=== PATIENT | male | born 1985 | race Hispanic/Latino ===

== ENCOUNTER 2018-02-11 19:11 | Emergency (ER) | payer SELFPAY ==
--- NOTE | 2018-02-11 21:36 | ER ---
Nurse's Notes [facility] Name: David Negron Jr Age: 32 yrs Sex: Male : 1985 Arrival Date: 02/11/2018 Time: 19:12 Bed 5 Private MD: Diagnosis: Insomnia;Other recurrent depressive disorders;Other psychoactive substance abuse-amphetamine abuse;Cannabis abuse Presentation: 02/11 19:28 Presenting complaint: Patient states: that he has lost touch with reality. States he fc doesn't know what it real and what is not. States that he is not currently suicidal but is afraid that if he does not get help he will end up that way. Pt has not slept in 6 days and is not eating well. Hx of drug use. Today left home and was picked up on the side of the road and taken to [facility]. Transition of care: patient was not received from another setting of care. Onset of symptoms was February 10, 2018. Risk Assessment: Do you want to hurt yourself or someone else? Unable to obtain. Initial Sepsis Screen: Does the patient meet any 2 criteria? No. Patient's initial sepsis screen is negative. Does the patient have a suspected source of infection? No. Patient's initial sepsis screen is negative. Care prior to arrival: seen at another hospital today. 19:28 Method Of Arrival: Ambulatory 19:28 Acuity: MELODY 2 bb Historical: - Allergies: 19:33 No Known Allergies; fc - Home Meds: 19:33 None [Active]; fc - PMHx: 19:33 Hypertension; Drug use; Thyroid problems; fc - PSHx: 19:33 shoulder surg; fc - Immunization history:: Last tetanus immunization: up to date. - Social history:: Smoking status: Patient uses tobacco products, smokes one pack cigarettes per day. Patient uses alcohol, occasionally. street drugs, cocaine, LSD, marijuana, Methamphetamine (Meth) methylenedioxymethamphetamine, psilocybin. - Ebola Screening: : Patient negative for fever greater than or equal to 101.5 degrees Fahrenheit, and additional compatible Ebola Virus Disease symptoms Patient denies exposure to infectious person Patient denies travel to an Ebola-affected area in the 21 days before illness onset. Screenin:35 Abuse screen: Denies threats or abuse. Nutritional screening: No deficits noted. fc Tuberculosis screening: No symptoms or risk factors identified. Fall Risk None identified. Assessment: 20:31 General: Appears in no apparent distress. Behavior is calm, cooperative, restless. ea Pain: Denies pain. Neuro: Level of Consciousness is awake, alert, Oriented to person, place, time. Cardiovascular: Patient's skin is warm and dry. Respiratory: Airway is patent Respiratory effort is even, unlabored, Respiratory pattern is regular, symmetrical. GI: No signs and/or symptoms were reported involving the gastrointestinal system. : No signs and/or symptoms were reported regarding the genitourinary system. EENT: No signs and/or symptoms were reported regarding the EENT system. Derm: Skin is pink, warm \T\ dry. 21:55 Reassessment: Patient and/or family updated on plan of care and expected duration. Pain ea level reassessed. Patient is alert, oriented x 3, equal unlabored respirations, skin warm/dry/pink. Discharge instructions given to patient, verbalized the understanding of instruction. Pt reports he does not have a ride, stated he would try to contact his friend for a ride home. 22:27 Reassessment: Patient and/or family updated on plan of care and expected duration. Pain ea level reassessed. Patient is alert, oriented x 3, equal unlabored respirations, skin warm/dry/pink. Pt left via Taxi. Psych: 19:36 Subjective: Patient's mood is sad, irritable, hopeless, Delusions are denied, fc Hallucinations are auditory, visual, Having thoughts of suicide. Denies suicidal plan. Objective: Patient is cooperative, irritable, using poor eye contact, restless, Speech is normal, Affect is appropriate. Interventions: Removed personal items and placed in bag. Patient placed in hospital gown. Suicide Risk Assessment: Sad Person Scale: Sex of patient: Male: Score 1 point. Age of patient: Score 1 point if patient 15-34. Depression: Score 1 point if signs of depression are present. Previous Attempt: Score 0 point if patient has not previously attempted suicide. Substance Abuse: Score 1 point if patient abuses alcohol or drugs. Rational Thinking: Score 1 point if patient is lacking rational thinking. Social Support: Score 0 if social support is present/available. Organized Plan: Score 0 if patient did not have an organized plan in place. Relationship: Score 1 point if patient is , , , or for a single male Chronic Sickness: Score 0 point if patient does not have a chronic illness, debilitating, or severe disorder. TOTAL POINTS: If total points are 5-6, proposed clinical action is to strongly consider hospitalization, depending upon confidence in the follow-up arrangement. Implement suicide precautions. Safety Checks: Personal items have been removed. Door is open. Visitors are present. Patient uses Patient uses cocaine, Patient uses hallucinogens Patient uses marijuana Patient uses methamphetamines Patient uses PCP. Vital Signs: 19:33 BP 133 / 92; Pulse 90; Resp 16; Temp 98.5(O); Pulse Ox 98% on R/A; Weight 113.4 kg (R); fc Height 5 ft. 11 in. (180.34 cm) (R); Pain 0/10; 20:45 BP 132 / 80; Pulse 87; Resp 18; Pulse Ox 99% ; ea 21:45 BP 128 / 82; Pulse 68; Resp 18; Pulse Ox 99% ; ea 22:00 BP 130 / 76; Pulse 78; Resp 18; Temp 98(O); Pulse Ox 99% ; ea 19:33 Body Mass Index 34.87 (113.40 kg, 180.34 cm) ED Course: 19:12 Patient arrived in ED. am2 19:31 Triage completed. fc 19:33 Arm band placed on Patient placed in an exam room, on a stretcher. fc 19:35 Yousif Oliver NP is PHCP. pm1 19:35 Niraj Damon MD is Attending Physician. pm1 19:35 Patient has correct armband on for positive identification. Placed in gown. Bed in low fc position. Call light in reach. 20:30 Berta Rojas, BRIAN is Primary Nurse. ea 22:07 No provider procedures requiring assistance completed. Patient did not have IV access ea during this emergency room visit. Administered Medications: 21:38 Drug: Ativan 1 mg Route: PO; ea 22:07 Follow up: Response: No adverse reaction; Marked relief of symptoms ea Outcome: 21:36 Discharge ordered by . pm1 22:08 Condition: improved ea 22:08 Instructed on discharge instructions, follow up and referral plans. Demonstrated understanding of instructions, follow-up care. 22:27 Discharged to home ambulatory. ea 22:30 Patient left the ED. ea Signatures: Ronel El RN BRIAN fc Nancy Meraz RN RN bb Yousif Oliver, [employer] pm1 Torri Shields am2 Berta Rojas RN RN ea Corrections: (The following items were deleted from the chart) 19:34 19:28 Presenting complaint: Patient states: that he has lost touch with reality. States fc he doesn't know what it real and what is not. States that he is not currently suicidal but is afraid that if he does not get help he will end up that way. 19:51 19:28 Acuity: MELODY 3 fc bb 20:32 20:31 Neuro: Level of Consciousness is awake, alert, Oriented to person, place, ea ea
--- NOTE | 2018-02-11 21:37 | EDPHYS ---
Physician Documentation [facility] Name: David Negron Jr Age: 32 yrs Sex: Male : 1985 Arrival Date: 02/11/2018 Time: 19:12 Bed 5 Private MD: ED Physician Niraj Damon HPI: 02/11 20:00 This 32 yrs old Male presents to ER via Ambulatory with complaints of Altered pm1 Mental Status. 20:00 The patient presents to the emergency department with anxiety, depression, psychosis, pm1 paranoia, insomnia. Associated signs and symptoms: Pertinent positives; anxiety, depression, paranoia, substance abuse, Pertinent negatives: homicidal ideation, suicide ideation. The patient has experienced similar episodes in the past, chronically. Patient was just discharged from [facility] with depression and substance abuse. Lab work was performed and the patient tested positive for cannabis and amphetmamines. Patient complaining of inability to sleep for the past 6 days. Historical: - Allergies: 19:33 No Known Allergies; fc - Home Meds: 19:33 None [Active]; fc - PMHx: 19:33 Hypertension; Drug use; Thyroid problems; fc - PSHx: 19:33 shoulder surg; fc - Immunization history:: Last tetanus immunization: up to date. - Social history:: Smoking status: Patient uses tobacco products, smokes one pack cigarettes per day. Patient uses alcohol, occasionally. street drugs, cocaine, LSD, marijuana, Methamphetamine (Meth) methylenedioxymethamphetamine, psilocybin. - Ebola Screening: : Patient negative for fever greater than or equal to 101.5 degrees Fahrenheit, and additional compatible Ebola Virus Disease symptoms Patient denies exposure to infectious person Patient denies travel to an Ebola-affected area in the 21 days before illness onset. ROS: 20:00 Constitutional: Negative for fever, chills, and weight loss, Eyes: Negative for injury, pm1 pain, redness, and discharge, ENT: Negative for injury, pain, and discharge, Neck: Negative for injury, pain, and swelling, Cardiovascular: Negative for chest pain, palpitations, and edema, Respiratory: Negative for shortness of breath, cough, wheezing, and pleuritic chest pain, Abdomen/GI: Negative for abdominal pain, nausea, vomiting, diarrhea, and constipation, Back: Negative for injury and pain, MS/Extremity: Negative for injury and deformity, Skin: Negative for injury, rash, and discoloration, Neuro: Negative for headache, weakness, numbness, tingling, and seizure. 20:00 Psych: Positive for anxiety, depression, insomnia, Negative for homicidal ideation, suicide gesture, suicidal ideation. Exam: 20:00 Constitutional: This is a well developed, well nourished patient who is awake, alert, pm1 and in no acute distress. Head/Face: Normocephalic, atraumatic. Eyes: Pupils equal round and reactive to light, extra-ocular motions intact. Lids and lashes normal. Conjunctiva and sclera are non-icteric and not injected. Cornea within normal limits. Periorbital areas with no swelling, redness, or edema. ENT: Nares patent. No nasal discharge, no septal abnormalities noted. Tympanic membranes are normal and external auditory canals are clear. Oropharynx with no redness, swelling, or masses, exudates, or evidence of obstruction, uvula midline. Mucous membranes moist. Neck: Trachea midline, no thyromegaly or masses palpated, and no cervical lymphadenopathy. Supple, full range of motion without nuchal rigidity, or vertebral point tenderness. No Meningismus. Chest/axilla: Normal chest wall appearance and motion. Nontender with no deformity. No lesions are appreciated. Cardiovascular: Regular rate and rhythm with a normal S1 and S2. No gallops, murmurs, or rubs. Normal PMI, no JVD. No pulse deficits. Respiratory: Lungs have equal breath sounds bilaterally, clear to auscultation and percussion. No rales, rhonchi or wheezes noted. No increased work of breathing, no retractions or nasal flaring. Abdomen/GI: Soft, non-tender, with normal bowel sounds. No distension or tympany. No guarding or rebound. No evidence of tenderness throughout. Back: No spinal tenderness. No costovertebral tenderness. Full range of motion. Skin: Warm, dry with normal turgor. Normal color with no rashes, no lesions, and no evidence of cellulitis. MS/ Extremity: Pulses equal, no cyanosis. Neurovascular intact. Full, normal range of motion. 20:00 Neuro: Orientation: is normal, Motor: is normal, moves all fours, strength is normal, strength is 5/5 in all extremities, Gait: is steady, at a normal pace, without difficulty. 20:00 Psych: Behavior/mood is pleasant, cooperative, Affect is calm, Oriented to person, place, time, Patient has no thoughts/intents to harm self or others. Delusions/hallucinations are not present. Vital Signs: 19:33 BP 133 / 92; Pulse 90; Resp 16; Temp 98.5(O); Pulse Ox 98% on R/A; Weight 113.4 kg (R); fc Height 5 ft. 11 in. (180.34 cm) (R); Pain 0/10; 20:45 BP 132 / 80; Pulse 87; Resp 18; Pulse Ox 99% ; ea 21:45 BP 128 / 82; Pulse 68; Resp 18; Pulse Ox 99% ; ea 22:00 BP 130 / 76; Pulse 78; Resp 18; Temp 98(O); Pulse Ox 99% ; ea 19:33 Body Mass Index 34.87 (113.40 kg, 180.34 cm) fc MDM: 19:47 Patient medically screened. pm1 21:25 ED course: Patient sleeping in room without any complaints on reevaluation . pm1 21:31 Data reviewed: vital signs. Data interpreted: Pulse oximetry: on room air is 98 %. pm1 Interpretation: normal. Counseling: I had a detailed discussion with the patient and/or guardian regarding: the historical points, exam findings, and any diagnostic results supporting the discharge/admit diagnosis, lab results, the need for outpatient follow up, a family practitioner, a psychiatrist, to return to the emergency department if symptoms worsen or persist or if there are any questions or concerns that arise at home. Administered Medications: 21:38 Drug: Ativan 1 mg Route: PO; ea 22:07 Follow up: Response: No adverse reaction; Marked relief of symptoms ea Disposition: 02/12 02:19 Co-signature as Attending Physician, Niraj Damon MD I agree with the assessment and 4 plan of care. Attestation: The patient's history, exam findings, diagnostics, and a summary of any interventions or procedures was reviewed in detail with Yousif Oliver NP. Disposition: 02/11/18 21:36 Discharged to Home. Impression: Other recurrent depressive disorders, Insomnia, Other psychoactive substance abuse - amphetamine abuse, Cannabis abuse. - Condition is Stable. - Discharge Instructions: Finding Treatment for Addiction, Insomnia, Major Depressive Disorder. - Medication Reconciliation Form, Thank You Letter form. - Follow up: Emergency Department; When: As needed; Reason: Worsening of condition. Follow up: Private Physician; When: 2 - 3 days; Reason: Recheck today's complaints, Continuance of care, Re-evaluation by your physician. - Problem is new. - Symptoms have improved. Signatures: Dispatcher [employer] EDMS Ronel El RN RN fc Marinas, Patrick, NP DIRECTOR CARDIOVASCULAR pm1 Berta Rojas RN Niraj Reyna ea, MD MD tw4 Corrections: (The following items were deleted from the chart) 02/11 21:36 21:36 02/11/2018 21:36 Discharged to Home. Impression: Insomnia; Other recurrent pm1 depressive disorders; Other psychoactive substance abuse - amphetamine abuse; Cannabis abuse. Condition is Stable. Forms are Medication Reconciliation Form, Thank You Letter, Antibiotic Education, Prescription Opioid Use. Follow up: Emergency Department; When: As needed; Reason: Worsening of condition. Follow up: Private Physician; When: 2 - 3 days; Reason: Recheck today's complaints, Continuance of care, Re-evaluation by your physician. Problem is new. Symptoms have improved. pm1 22:30 21:36 02/11/2018 21:36 Discharged to Home. Impression: Other recurrent depressive ea disordersInsomnia; Other psychoactive substance abuse - amphetamine abuse; Cannabis abuse. Condition is Stable. Forms are Medication Reconciliation Form, Thank You Letter, Antibiotic Education, Prescription Opioid Use. Follow up: Emergency Department; When: As needed; Reason: Worsening of condition. Follow up: Private Physician; When: 2 - 3 days; Reason: Recheck today's complaints, Continuance of care, Re-evaluation by your physician. Problem is new. Symptoms have improved. pm1
[2018-02-11] MEDS ORDERED: LORAZEPAM 1 MG TABLET ONE (21:42)
== END 2018-02-11 22:30 | disposition home or self-care (01) ==
LOC: ER 19:11
DX: F33.8 Other recurrent depressive disorders (principal); G47.00 Insomnia, unspecified; F12.10 Cannabis abuse, uncomplicated; F19.10 Other psychoactive substance abuse, uncomplicated; I10 Essential (primary) hypertension; F17.210 Nicotine dependence, cigarettes, uncomplicated
CPT/HCPCS: 99284

== ENCOUNTER 2018-07-06 07:40 | Observation (INO) | payer SELFPAY ==
--- OUTSIDE RECORDS SUMMARY | 2018-07-06 07:43 | XMS REPORT ---
:1985 Author Organization [facility] Address [address] [place] [address] [address] [place] [address] Care Team Providers Name Role Phone Unavailable Unavailable Unavailable Payers Payer Name Policy Type Policy Number Effective Date Expiration Date Problems This patient has no known problems. Allergies, Adverse Reactions, Alerts Allergy Allergy Status Severity Reaction(s) Onset Inactive Treating Comments Name Type Date Date Clinician No Known DA Active U 2014-09 Allergies -14 00:00:0 0 Medications This patient has no known medications.
[2018-07-06] MEDS ORDERED: NA CHLORIDE 0.9% 1,000 ML ONE ×2 (08:11→09:54)
[2018-07-06 08:25] LABS: Absolute Lymphocytes (CBC) 1.5 K/uL (0.7-4.9); Absolute Monocytes 0.7 K/uL (0.1-1.3); Absolute Neutrophil 11.2 K/uL (1.8-8.0); Basophils % 0.6 % (0-1.3); Eosinophils % 1.4 % (0-4.4); Hematocrit 39.7 % (39.6-49.0); Lymphocytes % 11.2 % (15.3-44.8); MPV 8.3 fL (7.6-11.3); Monocytes % 5.1 % (3.3-12.3); RBC Red Blood Cell Count 4.89 M/uL (4.33-5.43)
[2018-07-06 08:31] LABS: Protime INR 1.11
--- NOTE | 2018-07-06 08:38 | RAD REPORT ---
EXAM DESCRIPTION: CT - [id number] - 07/06/2018 8:00 am CLINICAL HISTORY: Trauma, head and neck injury. blunt trauma COMPARISON: Facial Bones W/ Mpr dated 07/06/2018 TECHNIQUE: Axial 5 mm thick images of the head were obtained. Axial 2 mm thick images of the cervical spine were obtained with sagittal and coronal reconstruction images generated and reviewed. All CT scans are performed using dose optimization technique as appropriate and may include automated exposure control or mA/KV adjustment according to patient size. FINDINGS: CT HEAD WITHOUT CONTRAST: No acute hemorrhage, hydrocephalus or extra-axial collection is identified.No areas of brain edema or midline shift. The paranasal sinuses and mastoids are clear.The calvarium is intact. Left frontal scalp hematoma not ed. CT CERVICAL SPINE WITHOUT CONTRAST: Significant motion artifact is present, limiting quality of the study. No gross fracture or subluxati on.No prevertebral soft tissues swelling is identified. IMPRESSION: No acute intracranial findings. CT cervical spine is limited by motion artifact without gross acute finding demonstrated.
--- NOTE | 2018-07-06 08:40 | RAD REPORT ---
EXAM DESCRIPTION: CT - CTFB CLINICAL HISTORY: facial trauma COMPARISON: Head C Spine Mpr Wo Con dated 07/06/2018 TECHNIQUE: Axial 2 mm thick images of the face were obtained with sagittal and coronal reconstructio n images. All CT scans are performed using dose optimization technique as appropriate and may include automated exposure control or mA/KV adjustment according to patient size. FINDINGS: No acute facial bone fracture is seen.The mandible is intact. The globes and orbital contents are grossly unremarkable.The paranasal sinuses and mastoids are clear . Left frontal scalp hematoma. IMPRESSION: Negative for facial bone fracture.
[2018-07-06 08:43] LABS: ALT/SGPT 28 U/L (12-78); AST/SGOT 33 U/L (15-37); Albumin 3.6 g/dL (3.4-5.0); Alkaline Phosphatase 100 U/L (45-117); BUN Blood Urea Nitrogen 13 mg/dL (7-18); Bicarbonate 28 mmol/L (21-32); Bilirubin Direct 0.2 mg/dL (0-0.2); Bilirubin Total 0.7 mg/dL (0.2-1.0); Glucose Level 92 mg/dL (74-106); Potassium 3.6 mmol/L (3.5-5.1); Protein, Total 6.7 g/dL (6.4-8.2); Sodium Level 140 mmol/L (136-145)
[2018-07-06] MEDS ORDERED: DERMABOND SKIN ADHESIVE TOP ONE (10:21)
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
[2018-07-06 11:42] LABS: Barbiturates NEGATIVE (NEGATIVE); Benzodiazepines NEGATIVE (NEGATIVE); Cocaine POSITIVE (NEGATIVE); METHAMPHETAM POSITIVE (NEGATIVE); Methadone NEGATIVE (NEGATIVE); Opiates NEGATIVE (NEGATIVE); Phencyclidine NEGATIVE (NEGATIVE); THC Cannibis NEGATIVE (NEGATIVE)
[2018-07-06 12:32] LABS: Urine Blood NEGATIVE (NEG); Urine Glucose NEGATIVE (NEG); Urine Protein NEGATIVE (NEG)
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
[2018-07-06] MEDS: NA CHLORIDE 0.9% 1,000 ML IV SCH (17:34)
[2018-07-06] MEDS ORDERED: INFLUENZA VACCINE (for 3y+) 0.5 ML DOSE IMVAC ONE (19:00)
[2018-07-07] MEDS: NA CHLORIDE 0.9% 1,000 ML IV SCH (03:57)
[2018-07-07 06:38] LABS: Absolute Lymphocytes (CBC) 2.3 K/uL (0.7-4.9); Absolute Monocytes 0.6 K/uL (0.1-1.3); Absolute Neutrophil 6.3 K/uL (1.8-8.0); Basophils % 0.6 % (0-1.3); Eosinophils % 2.6 % (0-4.4); MPV 8.3 fL (7.6-11.3); Monocytes % 5.9 % (3.3-12.3); RBC Red Blood Cell Count 4.88 M/uL (4.33-5.43)
[2018-07-07 06:54] LABS: ALT/SGPT 25 U/L (12-78); AST/SGOT 23 U/L (15-37); Albumin 3.1 g/dL (3.4-5.0); Alkaline Phosphatase 91 U/L (45-117); BUN Blood Urea Nitrogen 9 mg/dL (7-18); Bicarbonate 28 mmol/L (21-32); Bilirubin Total 0.5 mg/dL (0.2-1.0); Glucose Level 81 mg/dL (74-106); Sodium Level 139 mmol/L (136-145)
--- NOTE | 2018-07-07 12:28 | EKG ---
Test Date: 2018-07-06 Test Time: 08:07:05 Lathe Puller: MADAI MEASUREMENT RESULTS: Intervals: Rate: 72 PA: 160 QRSD: 86 QT: 410 QTc: 448 [place]: P: 81 PA: 160 QRS: 92 T: 56 INTERPRETIVE STATEMENTS: Normal sinus rhythm Rightward axis Borderline ECG No previous ECG available for comparison Electronically Signed On 07-07-18 12:24:48 CDT by Samy Alonzo
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
== END 2018-07-07 16:00 | disposition home or self-care (01) ==
LOC: ER 07:40 → ERHOLD 11:17 → 2ND 15:32
PROVIDERS: ADMIT Family Medicine; ATTEND Family Medicine
PROC: 0JQ10ZZ Repair Face Subcutaneous Tissue and Fascia, Open Approach (ICD-10-PCS; principal; 2018-07-06)
DX: S01.81XA Laceration without foreign body of other part of head, initial encounter (principal); W18.30XA Fall on same level, unspecified, initial encounter; Y92.9 Unspecified place or not applicable; F17.210 Nicotine dependence, cigarettes, uncomplicated; F14.10 Cocaine abuse, uncomplicated
CPT/HCPCS: 36415; 70450; 70486; 72125; 76377; 80048; 80053; 80076; 80307; 80320; 80329; 81003; 82962; 85025; 85610; 85730; 93005; 94760; 96360; 96361; 99285; G0378; J7030

== ENCOUNTER 2023-11-21 08:01 | Emergency (ER) | payer OTHER, SELFPAY ==
--- OUTSIDE RECORDS SUMMARY | 2023-11-21 08:04 | XMS REPORT | Continuity of Care Document ---
Author Name Unknown Address [address] [place] [address] [facility] Address [address] [facility] [place] [address] Care Team Providers Care Business Services Representative Name Role Phone Unavailable Unavailable Unavailable Payers Payer Name Policy Type Policy Number Effective Date Expirati on Date Source Allergies, Adverse Reactions, Alerts Allergy Name Allergy Type Status Severity Reaction(s) Onset Date Inactive Date Treating Clinician Comments Source No Known Allergie s DA Active U 10-04 00:00: 00 [facility]
[2023-11-21 08:58] LABS: Absolute Eosinophils 0.3 K/uL (0-0.5); Absolute Lymphocytes (CBC) 1.6 K/uL (0.7-4.9); Absolute Monocytes 0.6 K/uL (0.1-1.3); Absolute Neutrophil 6.1 K/uL (1.8-8.0); Basophils % 0.6 % (0-1.3); Eosinophils % 3.8 % (0-4.4); Hematocrit 38.7 % (39.6-49.0); Hemoglobin 12.9 g/dL (13.6-17.9); Lymphocytes % 18.9 % (15.3-44.8); MCH 27.3 pg (27.0-35.0); MCHC 33.3 g/dL (32.0-36.0); MCV 81.8 fL (80-100); MPV 7.6 fL (7.6-11.3); Monocytes % 6.5 % (3.3-12.3); Neutrophils % 70.2 % (41.7-73.7); Nucleated Red Blood Cells % 0.1 % (0-0); Platelets 326 thou/uL (152-406); RBC Red Blood Cell Count 4.74 M/uL (4.33-5.43); Red Cell Distribution Width 14.1 % (12.1-15.2)
[2023-11-21 09:12] LABS: ALT/SGPT 23 U/L (16-61); AST/SGOT 19 U/L (15-37); Albumin 3.8 g/dL (3.4-5.0); Alkaline Phosphatase 98 U/L (45-117); Anion Gap 6.1 mEq/L (5.0-15.0); BUN Blood Urea Nitrogen 15 mg/dL (7-18); Bicarbonate 30 mEq/L (21-32); Bilirubin Total 0.5 mg/dL (0.2-1.0); Globulin 3.8 g/dL (2.3-3.5); Glomerular Filtration Rate 96 ml/min (=/>90); Glucose Level 115 mg/dL (74-106); Potassium 4.1 mEq/L (3.5-5.1); Protein, Total 7.6 g/dL (6.4-8.2); Sodium Level 139 mEq/L (136-145)
[2023-11-21 09:34] LABS: Barbiturates NEGATIVE (NEGATIVE); Benzodiazepines NEGATIVE (NEGATIVE); Cocaine NEGATIVE (NEGATIVE); METHAMPHETAM POSITIVE (NEGATIVE); Methadone NEGATIVE (NEGATIVE); Opiates NEGATIVE (NEGATIVE); Phencyclidine NEGATIVE (NEGATIVE); THC Cannibis NEGATIVE (NEGATIVE)
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
[2023-11-21 20:33] VITALS: BP 128/79; TEMP 97.9; O2SAT 100
--- NOTE | 2023-11-23 13:39 | EKG ---
Test Date: 2023-11-21 Test Time: 08:43:24 Terrazzo Polisher: MICHELL MEASUREMENT RESULTS: Intervals: Rate: 83 AL: 152 QRSD: 80 QT: 378 QTc: 444 [place]: P: 68 AL: 152 QRS: 102 T: 53 INTERPRETIVE STATEMENTS: Normal sinus rhythm Rightward axis Borderline ECG Compared to ECG 07/06/2018 08:07:05 No significant changes Electronically Signed On 11-23-23 13:32:35 CDT by Yo Portillo
== END 2023-11-21 16:35 | disposition home or self-care (01) ==
LOC: ER 08:01
DX: T14.91XA Suicide attempt, initial encounter (principal); F15.90 Other stimulant use, unspecified, uncomplicated
CPT/HCPCS: 36415; 80053; 80143; 80179; 80307; 82077; 85025; 93005; 99284